=== PATIENT | male | born 1960 | race Caucasian/White ===

== ENCOUNTER 2019-08-16 14:27 | Outpatient (CLI) | payer OTHER ==
[~2019-08-16 14:27] MED LIST: CHOL20002 PO; DABI150C PO; LISI-170 PO; MELA3TAB62 PO; PROP325C4 PO
== END 2019-08-16 23:59 | disposition home or self-care (01) ==
LOC: STAR 14:27
PROVIDERS: ATTEND Internal Medicine Cardiovascular Disease
DX: Z02.9 Encounter for administrative examinations, unspecified (principal)

== ENCOUNTER 2019-08-17 10:22 | Day surgery (SDC) | payer OTHER ==
[2019-08-16 15:26] LABS: ANION GAP 5 mmol/L (5-15); CALCIUM 8.9 mg/dL (8.5-10.1); CHLORIDE 107 mmol/L (98-107); CREATININE 1.53 mg/dL (0.7-1.3)
[2019-08-16 15:41] LABS: BASOPHILS # (AUTO) 0.06 x10^3/uL (0-0.1); BASOPHILS % (AUTO) 1 % (0-1); EOSINOPHILS # (AUTO) 0.39 x10^3/uL (0-0.4); EOSINOPHILS % (AUTO) 6 % (1-7); LYMPHOCYTES % (AUTO) 20 % (22-44); MD NO; MEAN CORPUSCULAR HEMOGLOBIN 30.2 pg (27.5-34.5); MEAN CORPUSCULAR HGB CONC 33.2 g/dL (33.2-36.2); MEAN CORPUSCULAR VOLUME 90.9 fL (81-97); MEAN PLATELET VOLUME 9.9 fL (7.4-10.4); MONOCYTES % (AUTO) 12 % (2-9); NEUTROPHILS # (AUTO) 3.99 x10^3/uL (1.8-6.8); NEUTROPHILS % (AUTO) 61 % (42-75); PLATELET COUNT 218 x10^3/uL (130-400); RED BLOOD COUNT 5.15 x10^6/uL (4.38-5.82); RED CELL DISTRIBUTION WIDTH 13.8 % (9.4-14.8)
[~2019-08-17] VITALS: Ht 188 cm; Wt 105.5 kg
[2019-08-17] MEDS ORDERED: SODIUM CHLORIDE 0.9% 1,000 ML IV SCH (10:53)
[2019-08-17 10:59] VITALS: BP 122/74
[2019-08-17] MEDS ORDERED: FENTANYL PF 250 MCG/5ML ONE (11:08)
[2019-08-17] MEDS ORDERED: MIDAZOLAM 1 MG/ML, 5ML ONE ×2 (11:08→12:04)
[2019-08-17] MEDS ORDERED: LIDOCAINE 1%, 20ML ONE (11:08)
[2019-08-17] MEDS ORDERED: DIPHENHYDRAMINE 50 MG/ML, 1ML ONE (12:04)
[2019-08-17] MEDS ORDERED: MELATONIN 6 MG PO PRN (13:30)
[2019-08-17] MEDS ORDERED: PROPAFENONE HCL 325 MG PO SCH (21:00)
[2019-08-17] MEDS ORDERED: DABIGATRAN 150 MG CAPSULE PO SCH (21:00)
[2019-08-18] MEDS ORDERED: CHOLECALCIFEROL 2000 UNIT PO SCH (09:00)
[2019-08-18] MEDS ORDERED: LISINOPRIL 20 MG TABLET PO SCH (09:00)
[2019-08-18] MEDS ORDERED: [UNRECOGNIZED DRUG - OTHER] PO SCH (09:00)
== END 2019-08-17 18:06 | disposition home or self-care (01) ==
LOC: CACL 10:22
PROVIDERS: ATTEND Internal Medicine Cardiovascular Disease
DX: I48.92 Unspecified atrial flutter (principal); I48.0 Paroxysmal atrial fibrillation; I10 Essential (primary) hypertension; Z88.1 Allergy status to other antibiotic agents; Z88.5 Allergy status to narcotic agent; Z79.01 Long term (current) use of anticoagulants
CPT/HCPCS: 36415; 71046; 80048; 85025; 93613; 93621; 93623; 93653; 99156; 99157; C1730; C1766; C1894; C2630; J1200; J2250; J3010

== ENCOUNTER → 2019-12-13 | Outpatient (CLI) | payer OTHER | END | disposition home or self-care (01) | LOC: CVU 13:27 | PROVIDERS: ATTEND Internal Medicine Cardiovascular Disease | DX: I08.8 Other rheumatic multiple valve diseases (principal); I48.91 Unspecified atrial fibrillation | CPT/HCPCS: 93306; 93356 ==

== ENCOUNTER 2020-01-04 09:44 | Outpatient (CLI) | payer OTHER ==
[2020-01-04] MEDS ORDERED: SILD20TA PO (10:24)
[2020-01-04] MEDS ORDERED: PROP325C4 PO (10:24)
[2020-01-04] MEDS ORDERED: DABI150C PO (10:24)
[2020-01-04 10:44] LABS: BASOPHILS # (AUTO) 0.03 x10^3/uL (0-0.1); BASOPHILS % (AUTO) 1 % (0-1); EOSINOPHILS # (AUTO) 0.39 x10^3/uL (0-0.4); EOSINOPHILS % (AUTO) 8 % (1-7); LYMPHOCYTES # (AUTO) 0.94 x10^3/uL (1-3.4); LYMPHOCYTES % (AUTO) 20 % (22-44); MD NO; MEAN CORPUSCULAR HEMOGLOBIN 29.8 pg (27.5-34.5); MEAN CORPUSCULAR HGB CONC 32.5 g/dL (33.2-36.2); MEAN CORPUSCULAR VOLUME 91.8 fL (81-97); MEAN PLATELET VOLUME 9.5 fL (7.4-10.4); MONOCYTES # (AUTO) 0.56 x10^3/uL (0.2-0.8); MONOCYTES % (AUTO) 12 % (2-9); NEUTROPHILS # (AUTO) 2.82 x10^3/uL (1.8-6.8); NEUTROPHILS % (AUTO) 60 % (42-75); PLATELET COUNT 189 x10^3/uL (130-400); RED BLOOD COUNT 4.54 x10^6/uL (4.38-5.82); RED CELL DISTRIBUTION WIDTH 14.2 % (9.4-14.8)
[2020-01-04 10:50] LABS: ANION GAP 6 mmol/L (5-15); CALCIUM 8.7 mg/dL (8.5-10.1); CHLORIDE 109 mmol/L (98-107); CREATININE 1.34 mg/dL (0.7-1.3)
[2020-01-11] MEDS ORDERED: VARI50VI IM (08:00)
[2020-01-12] MEDS ORDERED: FLEC100T PO (10:30)
[2020-01-12] MEDS ORDERED: COLC0.6C3 PO (10:30)
== END 2020-01-04 23:59 | disposition home or self-care (01) ==
LOC: STAR 09:44
PROVIDERS: ATTEND Internal Medicine Cardiovascular Disease
DX: Z01.818 Encounter for other preprocedural examination (principal); I48.91 Unspecified atrial fibrillation; I48.92 Unspecified atrial flutter
CPT/HCPCS: 36415; 71046; 80048; 85025

== ENCOUNTER 2020-01-08 12:15 | Outpatient (CLI) | payer OTHER ==
[~2020-01-08 12:15] MED LIST changes: +SILD20TA PO
[2020-01-08] MEDS ORDERED: OMNIPAQUE 350 MG/ML, 150 ML BOTTLE ONE (13:54)
[2020-01-11] MEDS ORDERED: LIDOCAINE 1%, 20ML ONE (07:41)
[2020-01-11] MEDS ORDERED: VARI50VI IM (08:00)
[2020-01-12] MEDS ORDERED: FLEC100T PO (10:30)
[2020-01-12] MEDS ORDERED: COLC0.6C3 PO (10:30)
== END 2020-01-08 23:59 | disposition home or self-care (01) ==
LOC: CFH 12:15
PROVIDERS: ATTEND Internal Medicine Cardiovascular Disease
DX: Z01.818 Encounter for other preprocedural examination (principal); I48.91 Unspecified atrial fibrillation
CPT/HCPCS: 75572; Q9967

== ENCOUNTER 2020-02-07 12:20 | Day surgery (SDC) | payer OTHER ==
[~2020-02-07] VITALS: Ht 188 cm; Wt 100.0 kg
[~2020-02-07 12:20] MED LIST changes: +COLC0.6C3 PO; +FLEC100T PO; +VARI50VI IM
[2020-02-07 12:49] VITALS: BP 98/67
[2020-02-07 13:01] VITALS: BP 98/67
[2020-02-07] MEDS ORDERED: PROPOFOL 10 MG/ML, 20ML ONE (13:30)
[2020-02-07 13:36] LABS: BASOPHILS # (AUTO) 0.03 x10^3/uL (0-0.1); BASOPHILS % (AUTO) 1 % (0-1); EOSINOPHILS # (AUTO) 0.39 x10^3/uL (0-0.4); EOSINOPHILS % (AUTO) 6 % (1-7); LYMPHOCYTES # (AUTO) 1.46 x10^3/uL (1-3.4); LYMPHOCYTES % (AUTO) 22 % (22-44); MD NO; MEAN CORPUSCULAR HGB CONC 32.3 g/dL (33.2-36.2); MEAN CORPUSCULAR VOLUME 89.6 fL (81-97); MEAN PLATELET VOLUME 9.8 fL (7.4-10.4); MONOCYTES # (AUTO) 0.75 x10^3/uL (0.2-0.8); MONOCYTES % (AUTO) 11 % (2-9); NEUTROPHILS # (AUTO) 4.12 x10^3/uL (1.8-6.8); NEUTROPHILS % (AUTO) 61 % (42-75); PLATELET COUNT 240 x10^3/uL (130-400); RED BLOOD COUNT 5.31 x10^6/uL (4.38-5.82); RED CELL DISTRIBUTION WIDTH 13.2 % (9.4-14.8)
[2020-02-07 13:46] LABS: ANION GAP 5 mmol/L (5-15); CALCIUM 9.4 mg/dL (8.5-10.1); CHLORIDE 107 mmol/L (98-107); CREATININE 1.41 mg/dL (0.7-1.3)
[2020-02-07] MEDS ORDERED: SODIUM CHLORIDE FLUSH 10ML SYR IVF SCH (21:00)
== END 2020-02-07 14:40 | disposition home or self-care (01) ==
LOC: CACL 12:20
PROVIDERS: ATTEND Internal Medicine Cardiovascular Disease
DX: I48.92 Unspecified atrial flutter (principal); I48.91 Unspecified atrial fibrillation; I10 Essential (primary) hypertension; E66.3 Overweight; Z68.28 Body mass index [BMI] 28.0-28.9, adult; Z79.01 Long term (current) use of anticoagulants; Z79.899 Other long term (current) drug therapy; Z88.2 Allergy status to sulfonamides; Z88.5 Allergy status to narcotic agent
CPT/HCPCS: 36415; 80048; 85025; 92960; J2704